=== PATIENT | male | born 1960 | race Caucasian/White ===

== ENCOUNTER 2018-12-13 06:55 | Emergency (ER) | payer OTHER ==
--- NOTE | 2018-12-13 07:42 | EDM.PDOC ---
ED HPI GENERAL MEDICAL PROBLEM - General Chief Complaint: Upper Extremity Injury/Pain Stated Complaint: INFECTED FINGER Time Seen by Provider: 12/13/18 07:30 Source of Information: Reports: Patient History Limitations: Reports: No Limitations - History of Present Illness INITIAL COMMENTS - FREE TEXT/NARRATIVE: 58-year-old male with inflammation around the fingernail of the left ring finger for the past 3 days. It's now becoming slightly fluctuant just proximal to the nail and becoming more painful. He does not remember scraping or poking the finger. No fevers or chills. Onset: Gradual Duration: Day(s): (3 days) Location: Reports: Upper Extremity, Right Associated Symptoms: Reports: No Other Symptoms Left Middle Finger-Ring Pain Score (Numeric/FACES): 3 - Related Data Allergies Allergy/AdvReac Type Severity Reaction Status Date / Time No Known Allergies Allergy Verified 12/13/18 07:26 Home Meds: Home Meds Aspirin [Lo-Dose Aspirin EC] 81 mg PO DAILY 06/16/18 [History] Losartan [Cozaar] 25 mg PO DAILY 06/16/18 [History] Metoprolol Tartrate [Lopressor] 50 mg PO DAILY 06/16/18 [History] atorvaSTATin [Lipitor] 80 mg PO DAILY 06/16/18 [History] levETIRAcetam [Keppra] 500 mg PO DAILY 06/16/18 [History] Past Medical History Cardiovascular History: Reports: CAD, High Cholesterol, Hypertension, [place] Neurological History: Reports: Seizure Endocrine/Metabolic History: Reports: Obesity/BMI 30+ Hematologic History: Reports: Other (See Below) Other Hematologic History: hemochromotosis - Infectious Disease History Infectious Disease History: Reports: Chicken Pox, Measles, Mumps - Past Surgical History HEENT Surgical History: Reports: Other (See Below) Other HEENT Surgeries/Procedures: l ear surgery Cardiovascular Surgical History: Reports: Coronary Artery Bypass GI Surgical History: Reports: Colonoscopy Social & Family History - Caffeine Use Caffeine Use: Reports: Coffee, Soda, Tea Review of Systems - Review of Systems Review Of Systems: See Below Constitutional: Denies: Fever Respiratory: Denies: Shortness of Breath Cardiovascular: Denies: Chest Pain GI/Abdominal: Denies: Abdominal Pain Skin: Reports: Erythema (Infected finger) Neurological: Reports: No Symptoms ED EXAM, GENERAL - Physical Exam Exam: See Below Exam Limited By: No Limitations General Appearance: Alert, No Apparent Distress Respiratory/Chest: No Respiratory Distress Extremities: Other (Exam is otherwise limited to the right hand. There is paronychia L inflammation and redness to the distal ring finger on the left hand with some slight fluctuance at the base of the nail. It is tender to palpation.) Course - Vital Signs Last Recorded V/S: Last Vital Signs Temp 95.7 F 12/13/18 07:33 Pulse 72 12/13/18 07:33 Resp 12 12/13/18 07:33 BP 185/95 H 12/13/18 07:33 Pulse Ox 93 L 12/13/18 07:33 - Re-Assessments/Exams Free Text/Narrative Re-Assessment/Exam: 12/13/18 07:39 Discussed oral antibiotics versus more aggressive treatment of I&D. We elected to try a course of Augmentin initially twice daily with food, and he'll return in 48 hours if not improving satisfactorily. Warm compresses and gentle massage to the area may be beneficial. Departure - Departure Time of Disposition: 07:50 Disposition: Home, Self-Care 01 Condition: Good Clinical Impression: Paronychia of left ring finger - Discharge Information Instructions: Paronychia, [id number] Referrals: PCP,None [Primary Care Provider] - Forms: ED Department Discharge Care Plan Goals: Take Augmentin with food twice daily for at least 5-7 days. Warm compresses to the finger with gentle massage and may help, and recheck in 48 hours if not improving satisfactorily. Return sooner if getting significantly worse rapidly, such as more swelling and pain.
== END 2018-12-13 07:49 | disposition home or self-care (01) ==
LOC: JP.ED 06:55
DX: L03.012 Cellulitis of left finger (principal); I25.10 Atherosclerotic heart disease of native coronary artery without angina pectoris; E78.00 Pure hypercholesterolemia, unspecified; I10 Essential (primary) hypertension; I25.2 Old myocardial infarction; E66.9 Obesity, unspecified; Z79.82 Long term (current) use of aspirin; Z79.899 Other long term (current) drug therapy; Z68.36 Body mass index [BMI] 36.0-36.9, adult
CPT/HCPCS: 99283

== ENCOUNTER 2019-11-11 07:05 | Day surgery (SDC) | payer OTHER ==
[~2019-11-11 07:05] MED LIST: Bupivacaine 0.5% 50 ML MDV ONE; Lidocaine 0.5% 50 ML SDV ONE
[2019-11-11] MEDS ORDERED: Dextrose 5%-Lactated Ringers 1,000 ML IV SCH (07:45)
[2019-11-11] MEDS ORDERED: Clindamycin Phosphate 900 MG in Sodium Chloride 0.9% 100 ML IV ONE (08:30)
[2019-11-11] MEDS ORDERED: Midazolam 1 MG/ML 2 ML SDV ONE (09:48)
[2019-11-11] MEDS ORDERED: fentaNYL 100 MCG/2 ML SDV ONE (09:48)
[2019-11-11] MEDS ORDERED: Propofol 200 MG/20 ML SDV ONE (09:48)
[2019-11-11] MEDS ORDERED: Lidocaine 0.5% 50 ML SDV ONE (09:51)
--- NOTE | 2019-11-23 15:43 | OR ---
DATE OF PROCEDURE: 11/11/2019 SURGEON: Daryl Velazquez MD PREOPERATIVE DIAGNOSIS: Foreign body (splinter), left index finger. POSTOPERATIVE DIAGNOSES: 1. Foreign body (splinter), left index finger. 2. Abscess involving left index finger at a point of entrance of splinter into the left index finger. OPERATIVE PROCEDURES: Exploration of puncture wound to left index finger, 1. Removal of foreign body (55500). 2. Drainage of abscess (99385). ANESTHESIA: IV block plus sedation. INDICATION FOR PROCEDURE: This is a 59-year-old male, presenting with increasing discomfort of his left index finger. A wooden splinter entered the index finger roughly 17 days ago. The patient is now having increasing pain and swelling. Attempt was made to remove this in the walk-in clinic area, which was unsuccessful likely due to the relatively deep nature of the splinter at this point and surrounding overlying edema, and a surgical referral was made. The plan is to proceed with exploration of this area with an IV block. Preoperative antibiotics have been given. Potential risks including bleeding, infection, possible injury to the tendons and/or digital nerve in the area were reviewed, and the patient wishes to proceed. DETAILS OF PROCEDURE: The patient was taken to the operating room and placed in supine position. IV block was placed along with IV sedation. The left hand was then prepped and draped. On the radial and volar aspect of the midportion of the left index finger, the puncture wound was then opened up with fine mosquito forceps. Some purulent material was then drained consisting of a small abscess in that area. Cultures of this were obtained. At that point, further spreading revealed the underlying splinter, which was removed without difficulty at this point. The wound was then irrigated with Zyvox-containing saline solution and dressing applied. There were no evident complications. The patient was taken to the recovery room in satisfactory condition. The plan will be to have the patient finish off his Keflex antibiotics. Wound care instructions were given. Followup certainly will be p.r.n. He is instructed that should he develops increasing pain, fever or drainage, he should contact us at that time. Otherwise, this would be at this point likely to heal secondarily with the wound being opened. Of note, we have confirmed that he is up-to-date of his tetanus immunizations. Daryl Velazquez MD /[id number]
== END 2019-11-11 12:35 | disposition home or self-care (01) ==
LOC: JP.SDS 07:05
PROVIDERS: ATTEND Surgery
DX: S60.451A Superficial foreign body of left index finger, initial encounter (principal); L02.512 Cutaneous abscess of left hand; I10 Essential (primary) hypertension; E66.9 Obesity, unspecified; Z68.36 Body mass index [BMI] 36.0-36.9, adult; W45.8XXA Other foreign body or object entering through skin, initial encounter
CPT/HCPCS: 10120; 26010; 87070; 87075; 87077; 87186; 87205; J2001; J2250; J2704; J3010; J3490; J7050; J7121